=== PATIENT | female | born 1980 | race Two or more races ===

== ENCOUNTER 2021-07-07 18:56 | Emergency (ER) | payer MEDICAID, OTHER ==
[~2021-07-07] VITALS: Ht 170.2 cm; Wt 90.7 kg
[2021-07-07] MEDS ORDERED: HYDROcodone-ACET 5/325MG TAB PO ONE (21:30)
[2021-07-08 02:17] VITALS: BP 127/76
== END 2021-07-07 22:16 | disposition home or self-care (01) ==
LOC: ER 18:59
DX: S82.302A Unspecified fracture of lower end of left tibia, initial encounter for closed fracture (principal); S82.832A Other fracture of upper and lower end of left fibula, initial encounter for closed fracture; X50.1XXA Overexertion from prolonged static or awkward postures, initial encounter; Y93.89 Activity, other specified; Y92.89 Other specified places as the place of occurrence of the external cause; Y99.8 Other external cause status
CPT/HCPCS: 29515; 73610